=== PATIENT | male | born 1935 | race African-American/Black ===

== ENCOUNTER 2018-02-27 11:01 | Emergency (ER) | payer OTHER ==
[~2018-02-27] VITALS: Ht 177.8 cm; Wt 77.0 kg
[~2018-02-27 11:01] MED LIST: DORZ10DR8 EACHEYE; GABA-529 MT; LATA2.5D2 OP; TERA1CAP7 MT
[2018-02-27 11:41] LABS: HEMATOCRIT. 38.5 % (42.0-52.0); HEMOGLOBIN. 13.2 g/dL (14.0-18.0); MEAN CORPUSCULAR HEMOGLOBIN 31.9 pg (28.0-32.0); MEAN CORPUSCULAR VOLUME 93.1 fL (80.0-94.0); MEAN PLATELET VOLUME 8.8 fl (7.4-10.4); PLATELET 174 x1000/uL (130-400); RED BLOOD CELL COUNT 4.13 mill/uL (4.7-6.1); RED CELL DISTRIBUTION WIDTH 14.6 % (11.6-14.6)
[2018-02-27] MEDS ORDERED: TERAZOSIN HCL 1MG CAPSULE PO ONE (11:45)
[2018-02-27] MEDS ORDERED: ACETAMINOPHEN 325MG TABLET PO ONE (11:45)
[2018-02-27 11:46] LABS: CHLORIDE 110 mEq/L (98-107)
[2018-02-27 11:48] LABS: INR 1.1; PARTIAL THROMBOPLASTIN TIME 26.1 sec (23.4-31.0); PROTHROMBIN TIME 10.8 sec (9.1-11.1)
[2018-02-27 12:58] LABS: PLATELET ESTIMATE NORMAL
[2018-02-27 14:24] LABS: CLARITY URINE CLEAR (CLEAR); COLOR URINE YELLOW (YELLOW); KETONES URINE NEGATIVE (NEGATIVE); LEUKOCYTE ESTERASE URINE NEGATIVE (NEGATIVE); NITRITE URINE NEGATIVE (NEGATIVE); OCCULT BLOOD URINE NEGATIVE (NEGATIVE); PH URINE 7.5 (4.5-8.0); PROTEIN URINE NEGATIVE (NEGATIVE); SPECIFIC GRAVITY URINE 1.007 (1.005-1.030); UROBILINOGEN URINE 0.2 E.U./dL (0.2-1.0)
[2018-02-27 14:40] VITALS: BP 165/72
== END 2018-02-27 15:11 | disposition short-term general hospital (02) ==
LOC: ER 11:42 → CANBEDREQ 16:20
DX: R42 Dizziness and giddiness (principal); R51 Headache; F03.90 Unspecified dementia, unspecified severity, without behavioral disturbance, psychotic disturbance, mood disturbance, and anxiety; I10 Essential (primary) hypertension; R00.1 Bradycardia, unspecified; E78.00 Pure hypercholesterolemia, unspecified; H40.9 Unspecified glaucoma; Z98.890 Other specified postprocedural states; Z79.899 Other long term (current) drug therapy
CPT/HCPCS: 36415; 70450; 71045; 80053; 81003; 83690; 83735; 84484; 85025; 85610; 85651; 85730; 93005; 99285

== ENCOUNTER 2023-11-29 12:25 | Emergency (ER) | payer OTHER ==
[~2023-11-29] VITALS: Ht 182.9 cm; Wt 70.0 kg
[~2023-11-29 12:25] MED LIST changes: +LATA2.5D14 OP; -LATA2.5D2 OP; +TERA1CAP53 MT; -TERA1CAP7 MT
[2023-11-29 12:31] VITALS: O2SAT 97
[2023-11-29] MEDS: SODIUM CHLORIDE 0.9% 1,000 ML IV ONE (13:50)
[2023-11-29] MEDS: ACETAMINOPHEN 500MG TABLET PO NR (14:15)
[2023-11-29 14:31] LABS: HEMATOCRIT. 34.1 % (42.0-52.0); HEMOGLOBIN. 11.7 g/dL (14.0-18.0); MEAN CORPUSCULAR HEMOGLOBIN 33.6 pg (28.0-32.0); MEAN CORPUSCULAR HGB CONC 34.4 g/dL (31.0-37.0); MEAN CORPUSCULAR VOLUME 97.5 fL (80.0-94.0); MEAN PLATELET VOLUME 8.8 fl (7.4-10.4); PLATELET 283 x1000/uL (130-400); RED CELL DISTRIBUTION WIDTH 16.3 % (11.6-14.6); WHITE BLOOD COUNT 9.5 x1000/uL (4.5-11.0)
[2023-11-29 14:33] LABS: DIFFERENTIAL COMMENT 1
[2023-11-29 14:37] LABS: CHLORIDE 106 mEq/L (98-107); POTASSIUM 4.4 mEq/L (3.5-5.1); SODIUM 138 mEq/L (136-145)
[2023-11-29 14:38] LABS: CALCIUM 9.6 mg/dL (8.7-10.4); CARBON DIOXIDE 30 mEq/L (21-32)
[2023-11-29 14:43] LABS: CREATININE 1.1 mg/dL (0.6-1.3); GLUCOSE 95 mg/dL (70-105); UREA NITROGEN BLOOD 7 mg/dL (9-23)
[2023-11-29 14:44] LABS: ALANINE AMINOTRANSFERASE 16 IU/L (10-49); ALBUMIN 4.2 g/dL (3.2-4.8); ASPARTATE AMINOTRANSFERASE 25 IU/L (<34); TROPONIN I HIGH SENSITIVITY 44 ng/L (3.0-53)
[2023-11-29 14:45] LABS: BILIRUBIN DIRECT 0.3 mg/dL (<=3.0); BILIRUBIN TOTAL 0.6 mg/dL (0.1-1.0); CREATINE KINASE 92 IU/L (46-171)
[2023-11-29 15:48] LABS: PLATELET ESTIMATE NORMAL
[2023-11-29] MEDS ORDERED: NIRM1TAB8 PO (15:49)
[2023-11-29 16:15] VITALS: BP 155/78; PULSE 75; RESP 20; TEMP 98.7
== END 2023-11-29 16:31 | disposition home or self-care (01) ==
LOC: ER 12:25
DX: U07.1 COVID-19 (principal); F03.90 Unspecified dementia, unspecified severity, without behavioral disturbance, psychotic disturbance, mood disturbance, and anxiety; E78.00 Pure hypercholesterolemia, unspecified; H40.9 Unspecified glaucoma; R00.1 Bradycardia, unspecified; Z20.822 Contact with and (suspected) exposure to COVID-19; W18.39XA Other fall on same level, initial encounter; Y93.89 Activity, other specified; Y92.89 Other specified places as the place of occurrence of the external cause; Y99.8 Other external cause status
CPT/HCPCS: 99284; 96360; 71045; 96361; 87426; 80076; 80048; 82550; 83880; 85025; 84484; 36415; 72170; J7030